=== PATIENT | female | born 1960 | race Asian ===

== ENCOUNTER 2019-06-20 14:40 | Emergency (ER) | payer SELFPAY ==
[~2019-06-20] VITALS: Ht 160 cm; Wt 48.1 kg
[2019-06-20 15:05] VITALS: Ht 160 cm; Wt 48.1 kg
[2019-06-20 16:37] LABS: BASOPHIL % 0.1 % (0-2); PLATELET COUNT 293 x10^3mcL (130-400)
[2019-06-20 16:43] LABS: RED CELL DISTRIBUTION WIDTH 14.9 % (11.5-14.5)
[2019-06-20 17:27] LABS: CALCIUM 9.3 mg/dL (8.5-10.1); CARBON DIOXIDE 22.6 mmol/L (21-32); CREATININE SERUM 1.1 mg/dL (0.6-1.0); POTASSIUM SERUM 3.9 mmol/L (3.5-5.1)
[2019-06-20 17:35] LABS: ALBUMIN 3.7 g/dL (3.4-5.0); BILIRUBIN TOTAL 0.4 mg/dL (0.20-1.00); C REACTIVE PROTEIN 5.1 mg/dL (<=0.9)
[2019-06-20 17:56] LABS: TOTAL PROTEIN, SERUM 8.4 g/dL (6.4-8.2)
[2019-06-20 20:17] VITALS: BP 137/90
== END 2019-06-20 20:17 | disposition home or self-care (01) ==
LOC: ED 14:40
PROVIDERS: Emergency Medicine
DX: K59.00 Constipation, unspecified (principal); Z98.890 Other specified postprocedural states
CPT/HCPCS: 36415